=== PATIENT | female | born 1960 | race Caucasian/White ===

== ENCOUNTER 2017-02-26 12:46 | Day surgery (SDC) | payer SELFPAY ==
[~2017-02-26] VITALS: Ht 160 cm; Wt 69.9 kg
[~2017-02-26 12:46] MED LIST: ALBU18HF INH; CLOP75TA22 PO; DIAZ2TAB PO; DIGO250T PO; METO-95 PO; RIVA20TA PO; SIMV80TA3 PO; SODIUM CHLORIDE 0.9% 1,000 ML IV SCH
[2017-02-26] MEDS ORDERED: CEFAZOLIN PMX 1GM/50ML 50 ML IVPB ONE (13:00)
[2017-02-26 13:03] VITALS: BP 120/87
[2017-02-26] MEDS ORDERED: FENTANYL PF 100 MCG/2ML ONE (13:48)
[2017-02-26] MEDS ORDERED: LIDOCAINE 2%, 20ML ONE ×2 (13:49→15:01)
[2017-02-26] MEDS ORDERED: CEFAZOLIN 1,000 MG ONE (13:49)
[2017-02-26] MEDS ORDERED: CEFAZOLIN PMX 1GM/50ML 50 ML ONE (13:49)
[2017-02-26] MEDS ORDERED: MIDAZOLAM 1 MG/ML, 5ML ONE (13:49)
[2017-02-26] MEDS: DIAZEPAM 5 MG TABLET PO PRN ×2 (13:51→21:44)
[2017-02-26 14:10] LABS: BLOOD UREA NITROGEN 17 mg/dL (7-18)
[2017-02-26 14:16] LABS: HEMOGLOBIN 14.1 g/dL (11.7-16.4)
[2017-02-26] MEDS ORDERED: DIPHENHYDRAMINE 50 MG/ML, 1ML ONE (14:42)
[2017-02-26 16:16] VITALS: BP 109/72
[2017-02-26] MEDS: HYDROcodone/APAP 5/325 TABLET PO PRN (17:14)
[2017-02-26 20:00] VITALS: BP 101/68
[2017-02-26] MEDS ORDERED: SIMVASTATIN 40 MG TABLET PO SCH (21:00)
[2017-02-26] MEDS: SODIUM CHLORIDE FLUSH 10ML SYR IVF SCH (21:45)
[2017-02-26] MEDS: CEFAZOLIN PMX 1GM/50ML 50 ML IVPB SCH (23:08)
[2017-02-27] MEDS: HYDROcodone/APAP 5/325 TABLET PO PRN ×2 (00:01→07:34)
[2017-02-27 02:00] VITALS: BP 111/76
[2017-02-27] MEDS: CEFAZOLIN PMX 1GM/50ML 50 ML IVPB SCH (07:34)
[2017-02-27] MEDS ORDERED: DILT240C55 PO (08:02)
[2017-02-27] MEDS ORDERED: HYDR-3240 PO (08:02)
[2017-02-27 08:48] VITALS: BP 116/78
[2017-02-27] MEDS ORDERED: HYDROCHLOROTHIAZIDE 12.5 MG CAPSULE PO SCH (09:00)
[2017-02-27] MEDS: SODIUM CHLORIDE FLUSH 10ML SYR IVF SCH (09:00)
[2017-02-27] MEDS ORDERED: DIGOXIN 0.25 MG TABLET PO SCH (09:00)
[2017-02-27] MEDS ORDERED: DILTIAZEM 240 MG CAP.ER.24H PO SCH (09:00)
[2017-02-27] MEDS ORDERED: RIVAROXABAN 20 MG TABLET PO SCH (17:00)
== END 2017-02-27 10:04 | disposition home or self-care (01) ==
LOC: CARD 12:46 → UNDODISIN 02-27 10:04 → CARD 02-27 10:04 → EDSTATUS 03-02 06:22
PROVIDERS: ATTEND Internal Medicine Cardiovascular Disease
DX: Z45.010 Encounter for checking and testing of cardiac pacemaker pulse generator [battery] (principal); I44.2 Atrioventricular block, complete; Z45.09 Encounter for adjustment and management of other cardiac device; I10 Essential (primary) hypertension; J44.9 Chronic obstructive pulmonary disease, unspecified; Z86.73 Personal history of transient ischemic attack (TIA), and cerebral infarction without residual deficits; E78.2 Mixed hyperlipidemia; I48.91 Unspecified atrial fibrillation; Z87.891 Personal history of nicotine dependence; Z79.01 Long term (current) use of anticoagulants
CPT/HCPCS: 33207; 33284; 36415; 71010; 80048; 85025; 85610; C1779; C1786; C1892; J0690; J1200; J2250; J3010; J3490

== ENCOUNTER 2017-08-02 06:26 | Observation (INO) | payer SELFPAY ==
[~2017-08-02] VITALS: Ht 160 cm; Wt 72.7 kg
[~2017-08-02 06:26] MED LIST changes: -CLOP75TA22 PO; +CLOP75TA52 PO; +DILT240C55 PO; +HYDR-3240 PO; -SODIUM CHLORIDE 0.9% 1,000 ML IV SCH
[2017-08-02] MEDS ORDERED: SODIUM CHLORIDE 0.9% 1,000 ML IV SCH ×2 (06:40→07:00)
[2017-08-02 06:45] VITALS: BP 111/71
[2017-08-02] MEDS ORDERED: DIGO250T PO (07:16)
[2017-08-02] MEDS ORDERED: VERA240C2 PO (07:16)
[2017-08-02] MEDS ORDERED: MOME13HF2 INH (07:16)
[2017-08-02] MEDS ORDERED: SIMV40TA3 PO (07:16)
[2017-08-02] MEDS ORDERED: SENN-87 PO (07:28)
[2017-08-02 07:31] LABS: HEMOGLOBIN 15.8 g/dL (11.7-16.4); WHITE BLOOD COUNT 7.6 x10^3/uL (3.4-10)
[2017-08-02 07:42] LABS: BLOOD UREA NITROGEN 14 mg/dL (7-18)
[2017-08-02] MEDS ORDERED: MIDAZOLAM 1 MG/ML, 5ML ONE (07:45)
[2017-08-02] MEDS ORDERED: FENTANYL PF 100 MCG/2ML ONE (07:46)
[2017-08-02] MEDS ORDERED: LIDOCAINE 2%, 20ML ONE (08:03)
[2017-08-02] MEDS ORDERED: DIAZEPAM 5 MG TABLET PO SCH (09:00)
[2017-08-02] MEDS: [UNRECOGNIZED DRUG - OTHER] INH SCH ×2 (09:00→20:51)
[2017-08-02] MEDS: MOMETASONE INH SCH ×2 (09:00→20:51)
[2017-08-02] MEDS ORDERED: ZOLPIDEM 5MG TABLET PO PRN (09:00)
[2017-08-02] MEDS ORDERED: RIVAROXABAN 20 MG TABLET PO SCH ×2 (09:00→18:00)
[2017-08-02] MEDS: FORMOTEROL INH SCH ×2 (09:00→20:51)
[2017-08-02 10:17] VITALS: BP 110/72
[2017-08-02 13:45] VITALS: BP 105/71
[2017-08-02] MEDS ORDERED: ACETAMINOPHEN 325 MG TABLET PO PRN (16:00)
[2017-08-02] MEDS: DIAZEPAM 5 MG TABLET PO SCH (17:19)
[2017-08-02 19:43] VITALS: BP 103/68
[2017-08-02] MEDS: SENNOSIDES 8.6 MG TABLET PO SCH (20:51)
[2017-08-02] MEDS ORDERED: SIMVASTATIN 40 MG TABLET PO SCH (21:00)
[2017-08-03 02:58] VITALS: BP 112/62
[2017-08-03 07:15] VITALS: BP 107/73
[2017-08-03] MEDS: SENNOSIDES 8.6 MG TABLET PO SCH (07:43)
[2017-08-03] MEDS: [UNRECOGNIZED DRUG - OTHER] INH SCH (07:43)
[2017-08-03] MEDS: FORMOTEROL INH SCH (07:43)
[2017-08-03] MEDS: DIAZEPAM 5 MG TABLET PO SCH (07:43)
[2017-08-03] MEDS: MOMETASONE INH SCH (07:43)
[2017-08-03] MEDS ORDERED: DIAZEPAM 5 MG TABLET PO SCH (09:00)
[2017-08-03] MEDS ORDERED: ACET325T14 PO (09:12)
== END 2017-08-03 11:13 | disposition home or self-care (01) ==
LOC: CACL 06:26 → ORIP 08:52 → 5SO 09:27 → DCLOUNGE 08-03 11:05
PROVIDERS: ADMIT Internal Medicine Cardiovascular Disease; ATTEND Internal Medicine Cardiovascular Disease
DX: I48.91 Unspecified atrial fibrillation (principal); I44.2 Atrioventricular block, complete
CPT/HCPCS: 36415; 80048; 82962; 85025; 93650; 99156; C1894; C2630; G0378; J2250; J3010; J3490